=== PATIENT | female | born 1965 | race Caucasian/White ===

== ENCOUNTER 2021-07-10 06:23 | Emergency (ER) | payer BC ==
[~2021-07-10] VITALS: Ht 162.6 cm; Wt 61.4 kg
[~2021-07-10 06:23] MED LIST: ONDA4TAB6 PO
[2021-07-10] MEDS ORDERED: ondansetron/PF 4mg/2ml inj IV ONE (07:05)
[2021-07-10] MEDS ORDERED: pantoprazole 40MG/NS 100ML BAG 100 ML IV ONE (07:05)
[2021-07-10] MEDS ORDERED: normal saline 1000ML IV soln IVB ONE (07:05)
[2021-07-10 07:09] LABS: URINE HCG NEGATIVE (NEG)
[2021-07-10] MEDS: morphine 2 MG/ML inj. syringe IV PRN ×2 (07:10→07:21)
[2021-07-10 07:16] LABS: BASOPHILS % (AUTO) 0.5 % (0-1); EOSINOPHILS # (AUTO) 0.2 X10'3 (0-0.9); EOSINOPHILS % (AUTO) 2.4 % (0-6); HEMOGLOBIN 12.9 g/dl (12.0-16.0); LYMPHOCYTES # (AUTO) 3.1 X10'3 (1.1-4.8); LYMPHOCYTES % (AUTO) 42.1 % (21-51); MEAN CORPUSCULAR HEMOGLOBIN 30.5 PG (27.0-31.0); MEAN CORPUSCULAR HGB CONC 33.2 g/dL (33.0-36.5); MEAN PLATELET VOLUME 8.9 FL (7.4-10.4); MONOCYTES # (AUTO) 0.5 X10'3 (0-0.9); MONOCYTES % (AUTO) 7.3 % (2-12); NEUTROPHILS # (AUTO) 3.5 X10'3 (1.8-7.7); NEUTROPHILS % (AUTO) 47.7 % (42-75); PLATELET COUNT 347 X10'3 (140-440); RED BLOOD COUNT 4.24 X10'6 (4.20-5.60); RED CELL DISTRIBUTION WIDTH 12.8 % (11.5-14.5); WHITE BLOOD COUNT 7.4 X10'3 (4.5-11.0)
[2021-07-10 07:23] LABS: COLOR,URINE YELLOW (Yellow); GLUCOSE, URINE NEGATIVE (Neg); KETONES,URINE NEGATIVE (Neg); LEUKOCYTE ESTERASE ,URINE NEGATIVE (Neg); NITRITES, URINE NEGATIVE (Neg); OCCULT BLOOD,URINE LARGE (Neg); PROTEIN,URINE NEGATIVE (Neg); UROBILINOGEN,URINE 0.2 E.U/dL (0.2-1.0)
[2021-07-10 07:34] LABS: ALANINE AMINOTRANSFERASE 24 U/L (12-78); ALBUMIN 3.7 G/DL (3.4-5.0); ALBUMIN/GLOBULIN RATIO 1.1 (1.1-1.5); ALKALINE PHOSPHATASE 75 IU/L (46-116); ANION GAP 13 (8-16); ASPARTATE AMINO TRANSFERASE 14 U/L (10-37); BILIRUBIN,TOTAL 0.2 MG/DL (0.1-1.0); BLOOD UREA NITROGEN 20 MG/DL (7-18); BUN/CREATININE RATIO 17.4 (6.6-38.0); CHLORIDE 107 MMOL/L (99-107); CREATININE 1.15 MG/DL (0.40-0.90); GLUCOSE 151 MG/DL (70-104); LIPASE 213 U/L (73-393); SODIUM 142 MMOL/L (135-145); TOTAL CARBON DIOXIDE 22.1 MMOL/L (24-32); TOTAL PROTEIN 7.1 G/DL (6.4-8.2); eGFR 48 ML/MIN
[2021-07-10 07:35] LABS: CLARITY,URINE SLIGHTLY CLOUDY (Clear); UA COLLECTION TYPE CLN CATCH MIDSTREAM
[2021-07-10 07:38] LABS: BACTERIA,URINE 3+ /HPF (Neg); MUCUS STRANDS FEW /LPF (Neg); RBC,URINE 20-50 /HPF (0-2); SQUAMOUS EPITHELIAL CELL,UR MANY /LPF (FEW)
--- NOTE | 2021-07-10 08:00 | NUR ---
BACK FROM CT AT THIS TIME.
[2021-07-10] MEDS ORDERED: tamsulosin 0.4mg capsule PO SCH (08:25)
[2021-07-10] MEDS ORDERED: tamsulosin 0.4mg capsule PO ONE (08:25)
[2021-07-10] MEDS ORDERED: FLO0.4C PO (08:44)
[2021-07-10] MEDS ORDERED: HYDR-3965 PO (08:44)
[2021-07-10] MEDS ORDERED: ONDA8TAB13 PO (08:44)
[2021-07-10 09:00] VITALS: BP 115/64
[2021-07-11] MEDS ORDERED: LIT300C PO (03:00)
[2021-07-11] MEDS ORDERED: LAMO200T51 PO (03:00)
[2021-07-11] MEDS ORDERED: PANT40TA54 PO (03:00)
[2021-07-11] MEDS ORDERED: ASPI-1397 PO (03:00)
[2021-07-11] MEDS ORDERED: ATOR40TA72 PO (03:00)
[2021-07-11] MEDS ORDERED: TRAZ-251 PO (03:00)
== END 2021-07-10 09:01 | disposition home or self-care (01) ==
LOC: ER 06:23
DX: N20.0 Calculus of kidney (principal); M54.89 Other dorsalgia; R11.10 Vomiting, unspecified; R30.0 Dysuria; R10.84 Generalized abdominal pain; K21.9 Gastro-esophageal reflux disease without esophagitis; F32.9 Major depressive disorder, single episode, unspecified; Z79.899 Other long term (current) drug therapy
CPT/HCPCS: 36415; 74176; 80053; 81001; 81025; 83690; 85025; 96365; 96366; 96375; 99284; C9113; J2270; J2405; J7030

== ENCOUNTER 2021-07-10 19:09 | Inpatient (IN) | payer BC ==
[~2021-07-10] VITALS: Ht 162.6 cm; Wt 65.9 kg
[~2021-07-10 19:09] MED LIST changes: +FLO0.4C PO; +HYDR-3965 PO; +ONDA8TAB13 PO
[2021-07-10] MEDS ORDERED: ondansetron 4mg rapidly disintigrating tab PO ONE (19:25)
[2021-07-10] MEDS ORDERED: morphine 4 MG/ML inj SYRINge IM ONE ×2 (19:25→20:55)
[2021-07-10] MEDS ORDERED: ondansetron/PF 4mg/2ml inj IV ONE (21:35)
[2021-07-10] MEDS ORDERED: morphine 4 MG/ML inj SYRINge IV ONE (21:35)
[2021-07-10] MEDS ORDERED: CefTRIAXone/D5W-Rocephin 1gm 50 ML IV STA (21:47)
[2021-07-10 22:13] LABS: BASOPHILS % (AUTO) 0.2 % (0-1); EOSINOPHILS % (AUTO) 0.3 % (0-6); HEMOGLOBIN 11.7 g/dl (12.0-16.0); LYMPHOCYTES # (AUTO) 1.1 X10'3 (1.1-4.8); LYMPHOCYTES % (AUTO) 11.5 % (21-51); MEAN CORPUSCULAR HEMOGLOBIN 30.8 PG (27.0-31.0); MEAN CORPUSCULAR HGB CONC 33.4 g/dL (33.0-36.5); MEAN CORPUSCULAR VOLUME 92.3 FL (78-98); MEAN PLATELET VOLUME 8.4 FL (7.4-10.4); MONOCYTES # (AUTO) 0.6 X10'3 (0-0.9); MONOCYTES % (AUTO) 6.4 % (2-12); NEUTROPHILS # (AUTO) 7.6 X10'3 (1.8-7.7); NEUTROPHILS % (AUTO) 81.6 % (42-75); PLATELET COUNT 265 X10'3 (140-440); RED CELL DISTRIBUTION WIDTH 12.9 % (11.5-14.5); WHITE BLOOD COUNT 9.3 X10'3 (4.5-11.0)
--- NOTE | 2021-07-10 22:25 | NUR ---
DR MCDANIELS IN WITH THE PATIENT.
[2021-07-10 22:26] LABS: ALBUMIN 3.5 G/DL (3.4-5.0); ANION GAP 9 (8-16); BLOOD UREA NITROGEN 17 MG/DL (7-18); BUN/CREATININE RATIO 16.2 (6.6-38.0); CALCIUM 9.1 MG/DL (8.5-10.1); CHLORIDE 108 MMOL/L (99-107); CREATININE 1.05 MG/DL (0.40-0.90); GLUCOSE 134 MG/DL (70-104); POTASSIUM 4.1 MMOL/L (3.5-5.1); SODIUM 142 MMOL/L (135-145); TOTAL CARBON DIOXIDE 25.2 MMOL/L (24-32); eGFR 54 ML/MIN
[2021-07-10 22:39] LABS: CLARITY,URINE SLIGHTLY CLOUDY (Clear); COLOR,URINE YELLOW (Yellow); GLUCOSE, URINE NEGATIVE (Neg); KETONES,URINE NEGATIVE (Neg); LEUKOCYTE ESTERASE ,URINE NEGATIVE (Neg); NITRITES, URINE NEGATIVE (Neg); OCCULT BLOOD,URINE SMALL (Neg); PH,URINE 6.5 (4.8-8.0); PROTEIN,URINE NEGATIVE (Neg); UROBILINOGEN,URINE 0.2 E.U/dL (0.2-1.0)
[2021-07-10 22:47] LABS: UA COLLECTION TYPE NON-SPECIFIED
[2021-07-10 22:51] LABS: MUCUS STRANDS MANY /LPF (Neg); SQUAMOUS EPITHELIAL CELL,UR MANY /LPF (FEW)
[2021-07-10 22:52] LABS: BACTERIA,URINE 1+ /HPF (Neg); CAL OXALATE CRYSTALS 4+ /HPF (NEGATIVE)
[2021-07-10 22:53] LABS: WBC,URINE 0-4 /HPF (0-4)
[2021-07-11] MEDS ORDERED: LIT300C PO (03:00)
[2021-07-11] MEDS ORDERED: LAMO200T51 PO (03:00)
[2021-07-11] MEDS ORDERED: TRAZ-251 PO (03:00)
[2021-07-11] MEDS ORDERED: ATOR40TA72 PO (03:00)
[2021-07-11] MEDS ORDERED: PANT40TA54 PO (03:00)
[2021-07-11] MEDS ORDERED: ASPI-1397 PO (03:00)
[2021-07-11] MEDS ORDERED: morphine 4 MG/ML inj SYRINge IV ONE (03:20)
[2021-07-11] MEDS ORDERED: ondansetron/PF 4mg/2ml inj IV ONE (03:20)
[2021-07-11] MEDS ORDERED: diphenhydrAMINE 50 mg/ml inj IV PRN (03:30)
[2021-07-11] MEDS ORDERED: magnesium hydroxide 30ml (MOM) UD suspension PO PRN (03:30)
[2021-07-11] MEDS ORDERED: acetaminophen 325mg tablet PO PRN (03:30)
[2021-07-11] MEDS ORDERED: mag hydrox/Alum hydrox/simeth 30ml oral suspension PO PRN (03:30)
[2021-07-11] MEDS ORDERED: diphenhydrAMINE 25mg capsule PO PRN (03:30)
[2021-07-11] MEDS ORDERED: bisacodyl 10mg suppository rectal RC PRN (03:30)
[2021-07-11] MEDS ORDERED: HYDROcodone/acetaminophen 5mg/325mg tablet PO PRN (03:30)
[2021-07-11] MEDS ORDERED: acetaminophen 650mg rectal suppository RC PRN (03:30)
[2021-07-11] MEDS ORDERED: HYDROmorphone inj. 0.5 MG/0.5 ML DISP.SYRIN IV PRN ×2 (03:30→14:10)
[2021-07-11] MEDS ORDERED: HYDROcodone/acetaminophen 10/325mg tab PO PRN (03:30)
[2021-07-11] MEDS ORDERED: ondansetron 4mg rapidly disintigrating tab PO PRN (03:30)
[2021-07-11] MEDS ORDERED: morphine 2 MG/ML inj. syringe IV PRN ×2 (03:30)
[2021-07-11] MEDS ORDERED: ondansetron/PF 4mg/2ml inj IV PRN (03:30)
--- NOTE | 2021-07-11 03:51 | NUR ---
Called report to surgical floor. Pt going to room 360.
[2021-07-11 04:03] LABS: MAGNESIUM 2.1 MG/DL (1.5-2.4); PHOSPHORUS 3.2 MG/DL (2.3-4.5)
--- NOTE | 2021-07-11 04:11 | NUR ---
Patient in room [facility]. I have received report from Dwight VALDEZ in the ER and had the opportunity to ask questions and assume patient care. Pt arrived on the unit via wheelchair. She kept her phone and glasses with her, other belongings were placed at bedside. Pt VSS, on room air, SL with no signs of distress. Will continue to monitor.
[2021-07-11 04:17] VITALS: BP 112/57
[2021-07-11] MEDS: normal saline 1000ml 1,000 ML IV SCH ×3 (04:24→22:03)
[2021-07-11 05:19] LABS: APTT 26 SECONDS (22-32)
--- NOTE | 2021-07-11 06:26 | NUR ---
Problems reprioritized. Patient report given, questions answered & plan of care reviewed with Dominic VALDEZ.
--- NOTE | 2021-07-11 06:47 | NUR ---
Problems reprioritized. Patient report received, questions answered & plan of care reviewed with Akila VALDEZ
[2021-07-11] MEDS ORDERED: pantoprazole 40mg Tablet.DR PO SCH (07:30)
[2021-07-11] MEDS: docusate sod 100mg capsule PO SCH ×2 (07:59→20:09)
[2021-07-11] MEDS: heparin, porcine 5000 units/ml vial SQ SCH ×2 (08:05→20:18)
[2021-07-11] MEDS: CefTRIAXone/D5W-Rocephin 1gm 50 ML IV SCH (10:13)
[2021-07-11] MEDS: tamsulosin 0.4mg capsule PO SCH ×2 (12:26→20:39)
[2021-07-11] MEDS: acetaminophen 325mg tablet PO PRN ×2 (12:28→20:10)
[2021-07-11 13:33] VITALS: BP 100/55
[2021-07-11] MEDS ORDERED: ketorolac trometh. 30mg/ml inj. IV ONE (14:10)
[2021-07-11] MEDS ORDERED: ketorolac trometh. 30mg/ml inj. IV PRN (14:35)
[2021-07-11] MEDS ORDERED: HYDROmorphone 1 mg/ml syringe IV PRN (14:35)
[2021-07-11 18:00] VITALS: BP 145/87
--- NOTE | 2021-07-11 18:33 | NUR ---
Problems reprioritized. Patient report given, questions answered & plan of care reviewed with Cindy VALDEZ.
[2021-07-11] MEDS: lithium carbonate 150mg capsule PO SCH (20:12)
[2021-07-11] MEDS ORDERED: traZODone 50mg tablet PO SCH (21:00)
[2021-07-11] MEDS ORDERED: temazepam 15mg capsule PO PRN (21:00)
[2021-07-12] VITALS: BP 103/43
--- NOTE | 2021-07-12 05:22 | NUR ---
pt resting in bed. tolerated cl diet without n/v overnight. iv remains patent. urine strained no stones found
[2021-07-12 06:38] LABS: BASOPHILS % (AUTO) 0.4 % (0-1); EOSINOPHILS # (AUTO) 0.2 X10'3 (0-0.9); EOSINOPHILS % (AUTO) 2.6 % (0-6); HEMATOCRIT 32.9 % (35.0-45.0); LYMPHOCYTES # (AUTO) 1.8 X10'3 (1.1-4.8); LYMPHOCYTES % (AUTO) 28.1 % (21-51); MEAN CORPUSCULAR HGB CONC 33.5 g/dL (33.0-36.5); MEAN CORPUSCULAR VOLUME 92.6 FL (78-98); MEAN PLATELET VOLUME 8.9 FL (7.4-10.4); MONOCYTES # (AUTO) 0.5 X10'3 (0-0.9); MONOCYTES % (AUTO) 7.7 % (2-12); NEUTROPHILS % (AUTO) 61.2 % (42-75); PLATELET COUNT 216 X10'3 (140-440); RED BLOOD COUNT 3.55 X10'6 (4.20-5.60); RED CELL DISTRIBUTION WIDTH 12.5 % (11.5-14.5); WHITE BLOOD COUNT 6.5 X10'3 (4.5-11.0)
[2021-07-12 06:44] LABS: ALANINE AMINOTRANSFERASE 19 U/L (12-78); ALBUMIN/GLOBULIN RATIO 1.2 (1.1-1.5); ALKALINE PHOSPHATASE 68 IU/L (46-116); ANION GAP 7 (8-16); ASPARTATE AMINO TRANSFERASE 13 U/L (10-37); BILIRUBIN,TOTAL 0.3 MG/DL (0.1-1.0); BLOOD UREA NITROGEN 10 MG/DL (7-18); BUN/CREATININE RATIO 13.2 (6.6-38.0); CALCIUM 8.3 MG/DL (8.5-10.1); CHLORIDE 112 MMOL/L (99-107); CREATININE 0.76 MG/DL (0.40-0.90); GLUCOSE 91 MG/DL (70-104); POTASSIUM 4.3 MMOL/L (3.5-5.1); SODIUM 146 MMOL/L (135-145); TOTAL CARBON DIOXIDE 27.1 MMOL/L (24-32); TOTAL PROTEIN 5.6 G/DL (6.4-8.2); eGFR 78 ML/MIN
--- NOTE | 2021-07-12 06:47 | NUR ---
Patient in room [facility]. I have received report from Erica VALDEZ and had the opportunity to ask questions and assume patient care.
[2021-07-12 08:00] VITALS: BP 124/61
[2021-07-12] MEDS ORDERED: LAMOTRIGINE 200 MG PO SCH (08:00)
[2021-07-12] MEDS ORDERED: aspirin 81mg, enteric-coated 1 TAB TABLET.DR PO SCH (08:00)
[2021-07-12] MEDS ORDERED: pantoprazole 40mg Tablet.DR PO SCH (08:00)
[2021-07-12] MEDS: docusate sod 100mg capsule PO SCH (08:45)
[2021-07-12] MEDS: heparin, porcine 5000 units/ml vial SQ SCH (08:46)
[2021-07-12] MEDS: CefTRIAXone/D5W-Rocephin 1gm 50 ML IV SCH (08:48)
[2021-07-12] MEDS: lithium carbonate 150mg capsule PO SCH (08:50)
[2021-07-12] MEDS: normal saline 1000ml 1,000 ML IV SCH (10:28)
[2021-07-12 11:00] VITALS: BP 140/74
[2021-07-12] MEDS ORDERED: OXYB5TAB16 PO (12:00)
[2021-07-12] MEDS ORDERED: OXYC-150 PO (12:00)
[2021-07-12] MEDS ORDERED: KETO10TA2 PO (12:00)
--- NOTE | 2021-07-12 14:20 | NUR ---
Pt is A & O x4 and in no apparent distress. Pt verbalizes understanding of ALL DC orders. Pt able to teach back DC instructions and the importance of following up with PCP. Pt's IV removed intact. Pt got dressed and her and her daughter walked to the front where her picked her up.
== END 2021-07-12 14:40 | disposition home or self-care (01) | DRG 690 ==
LOC: ER 19:10 → ED HOLD 07-11 02:54 → SUR 3N 07-11 04:02
PROVIDERS: ADMIT Family Medicine; ATTEND Family Medicine
DX: N13.6 Pyonephrosis (principal); I10 Essential (primary) hypertension; N17.9 Acute kidney failure, unspecified; K21.9 Gastro-esophageal reflux disease without esophagitis; F41.9 Anxiety disorder, unspecified; F32.A Depression, unspecified; Z87.442 Personal history of urinary calculi; Z79.899 Other long term (current) drug therapy; Z79.82 Long term (current) use of aspirin
CPT/HCPCS: 36415; 80048; 80053; 80178; 81001; 83735; 83880; 84100; 85025; 85610; 85730; 87081; 96372; 96374; 96375; 99285; G0378; J0696; J1644; J1885; J2270; J2405; J7030